=== PATIENT | female | born 2000 | race Two or more races ===

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

== ENCOUNTER 2021-11-14 21:23 | Emergency (ER) | payer MEDICAID ==
[~2021-11-14] VITALS: Ht 152.4 cm; Wt 48.5 kg
[2021-11-15] MEDS ORDERED: HYDROcodone-ACET 5/325MG TAB PO ONE (00:30)
[2021-11-15 03:20] VITALS: BP 116/73
== END 2021-11-15 03:21 | disposition home or self-care (01) ==
LOC: ER 21:28
DX: M79.10 Myalgia, unspecified site (principal); V43.62XA Car passenger injured in collision with other type car in traffic accident, initial encounter; Y93.89 Activity, other specified; Y92.410 Unspecified street and highway as the place of occurrence of the external cause; Y99.8 Other external cause status
CPT/HCPCS: 70450; 71046; 72125; 72131

== ENCOUNTER → 2023-05-31 | Outpatient (CLI) | payer MEDICAID ==
[2023-05-31 12:19] LABS: Basophils # (auto) 0 10 ^3/uL (0-0.2); Basophils % (auto) 0.3 % (0.0-2.0); Eosinophils # (auto) 0.2 10 ^3/uL (0-0.8); Eosinophils % (auto) 2.3 % (0.0-7.0); Hematocrit 35.7 % (36.0-46.0); Hemoglobin 12.2 g/dL (12.2-16.2); Lymphocytes # (auto) 1.8 10 ^3/uL (0.4-5.4); Lymphocytes % (auto) 24.3 % (10.0-50.0); Mean Corpuscular Hemoglobin 30.7 pg (28.0-32.0); Mean Corpuscular Volume 90.3 fL (80.0-100.0); Monocytes # (auto) 0.4 10 ^3/uL (0-1.3); Monocytes % (auto) 5.7 % (0.0-12.0); Neutrophils # (auto) 5.1 10 ^3/uL (1.6-8.6); Neutrophils % (auto) 67.4 % (37.0-80.0); Red Blood Cells 3.96 10^6/uL (4.0-5.20); Red Cell Distribution Width 13.2 % (11.8-14.3); White Blood Cell 7.6 10^3/uL (4.4-10.8)
[2023-05-31 12:41] LABS: Amphetamine Screen, Urine Neg (NEGATIVE); Barbiturate Scree,Urine Neg (NEGATIVE); Benzodiazephine Screen, Urine Neg (NEGATIVE); Cocaine Screen, Urine Neg (NEGATIVE)
[2023-05-31 12:42] LABS: Cannabinoid Screen, Urine Neg (NEGATIVE); Opiate Scree,Urine Neg (NEGATIVE); Phencyclidine Screen, Urine Neg (NEGATIVE)
[2023-06-01 06:06] LABS: Treponema Pallidum Ab LC Non Reactive (Non Reactive)
[2023-06-01 08:06] LABS: RPR Non Reactive (Non Reactive)
[2023-06-01 22:06] LABS: Chlamydia Trachomatis, NAA Negative (Negative); Neisseria gonorrhoeae, NAA Negative (Negative)
[2023-06-02 14:06] LABS: QuantiFERON-TB Gold Plus Negative (Negative)
[2023-06-02 19:06] LABS: Treponema pallidum Ab (FTA-Ab) Non Reactive (Non Reactive)
== END | disposition home or self-care (01) ==
LOC: LAB 11:40
PROVIDERS: ATTEND Obstetrics & Gynecology
DX: Z31.430 Encounter of female for testing for genetic disease carrier status for procreative management (principal); N39.0 Urinary tract infection, site not specified
CPT/HCPCS: 36415; 80307; 83036; 84112; 84144; 84702; 85025; 86592; 86703; 86762; 86850; 86900; 86901; 87086; 87088; 87186; 87340

== ENCOUNTER 2023-07-31 14:15 | Emergency (ER) | payer MEDICAID ==
[~2023-07-31] VITALS: Ht 152.4 cm; Wt 52.3 kg
[2023-07-31 16:36] VITALS: BP 119/68; PULSE 75; RESP 16; TEMP 98.4; O2SAT 98
[2023-07-31] MEDS: methylPREDNISolone SOD SUCC 125 MG/2 ML VL IM ONE (16:51)
[2023-07-31] MEDS ORDERED: CETI10CA PO (16:55)
== END 2023-07-31 17:04 | disposition home or self-care (01) ==
LOC: ER 14:15
DX: O26.892 Other specified pregnancy related conditions, second trimester (principal); T78.49XA Other allergy, initial encounter; Z3A.23 23 weeks gestation of pregnancy; Z79.899 Other long term (current) drug therapy; X58.XXXA Exposure to other specified factors, initial encounter
CPT/HCPCS: 96372; 99283; J2930

== ENCOUNTER → 2023-08-28 | Outpatient (CLI) | payer MEDICAID ==
[~2023-08-28] MED LIST: CETI10CA PO; PREN-96 PO
[2023-08-28 09:13] LABS: Basophils # (auto) 0 10 ^3/uL (0-0.2); Basophils % (auto) 0.3 % (0.0-2.0); Eosinophils # (auto) 0.1 10 ^3/uL (0-0.8); Eosinophils % (auto) 0.8 % (0.0-7.0); Hematocrit 35.2 % (36.0-46.0); Hemoglobin 11.9 g/dL (12.2-16.2); Lymphocytes # (auto) 1.3 10 ^3/uL (0.4-5.4); Lymphocytes % (auto) 12.3 % (10.0-50.0); Mean Corpuscular Hemoglobin 30.8 pg (28.0-32.0); Mean Corpuscular Hgb Conc. 33.9 g/dL (32.0-36.0); Mean Corpuscular Volume 90.8 fL (80.0-100.0); Monocytes # (auto) 1.1 10 ^3/uL (0-1.3); Monocytes % (auto) 10.4 % (0.0-12.0); Neutrophils # (auto) 8.2 10 ^3/uL (1.6-8.6); Neutrophils % (auto) 76.2 % (37.0-80.0); Nucleated Red Blood Cells % 0.1 %; Red Blood Cells 3.88 10^6/uL (4.0-5.20); Red Cell Distribution Width 12.9 % (11.8-14.3); White Blood Cell 10.8 10^3/uL (4.4-10.8)
[2023-08-29 11:07] LABS: RPR Non Reactive (Non Reactive)
[2023-08-29 23:07] LABS: Chlamydia Trachomatis, NAA Negative (Negative); Neisseria gonorrhoeae, NAA Negative (Negative)
== END | disposition home or self-care (01) ==
LOC: LAB 08:52
PROVIDERS: ATTEND Obstetrics & Gynecology
DX: Z34.00 Encounter for supervision of normal first pregnancy, unspecified trimester (principal); Z3A.00 Weeks of gestation of pregnancy not specified
CPT/HCPCS: 36415; 82951; 83036; 85025; 86592

== ENCOUNTER → 2023-10-25 | Outpatient (CLI) | payer MEDICAID ==
[2023-10-25 10:15] LABS: Basophils # (auto) 0 10 ^3/uL (0-0.2); Basophils % (auto) 0.4 % (0.0-2.0); Eosinophils # (auto) 0.2 10 ^3/uL (0-0.8); Eosinophils % (auto) 1.9 % (0.0-7.0); Hematocrit 34.7 % (36.0-46.0); Hemoglobin 11.3 g/dL (12.2-16.2); Lymphocytes # (auto) 1.9 10 ^3/uL (0.4-5.4); Lymphocytes % (auto) 21.8 % (10.0-50.0); Mean Corpuscular Hemoglobin 28.9 pg (28.0-32.0); Mean Corpuscular Hgb Conc. 32.6 g/dL (32.0-36.0); Mean Corpuscular Volume 88.6 fL (80.0-100.0); Monocytes # (auto) 0.6 10 ^3/uL (0-1.3); Monocytes % (auto) 6.5 % (0.0-12.0); Neutrophils # (auto) 6.2 10 ^3/uL (1.6-8.6); Neutrophils % (auto) 69.4 % (37.0-80.0); Nucleated Red Blood Cells % 0.1 %; Red Blood Cells 3.92 10^6/uL (4.0-5.20); Red Cell Distribution Width 13.5 % (11.8-14.3); White Blood Cell 8.9 10^3/uL (4.4-10.8)
[2023-10-27 00:06] LABS: Chlamydia Trachomatis, NAA Negative (Negative); Neisseria gonorrhoeae, NAA Negative (Negative)
[2023-10-28 07:06] LABS: RPR Non Reactive (Non Reactive)
== END | disposition home or self-care (01) ==
LOC: LAB 09:42
PROVIDERS: ATTEND Obstetrics & Gynecology
DX: Z34.00 Encounter for supervision of normal first pregnancy, unspecified trimester (principal); Z3A.00 Weeks of gestation of pregnancy not specified
CPT/HCPCS: 36415; 85025; 86592

== ENCOUNTER 2023-11-17 18:32 | Inpatient (IN) | payer MEDICAID ==
[~2023-11-17] VITALS: Ht 152.4 cm; Wt 55.8 kg
[2023-11-17] MEDS ORDERED: PENICILLIN G POT 5MIL/D5 50ML 50 ML IV ONE (21:30)
[2023-11-17] MEDS ORDERED: BUTORPHANOL TARTRATE 2 MG/1 ML VIAL IV PRN ×2 (21:30)
[2023-11-17] MEDS ORDERED: LIDOCAINE 2%HCL (LOCAL ANESTH.) INJ 20ML MDV IJ PRN (21:30)
[2023-11-17] MEDS: LACTATED RINGER'S 1,000 ML IV SCH (21:45)
[2023-11-17] MEDS ORDERED: TERBUTALINE SULFATE 1 MG/ML 1ML VIAL SC PRN (22:15)
[2023-11-17 22:39] LABS: Basophils # (auto) 0 10 ^3/uL (0-0.2); Basophils % (auto) 0.5 % (0.0-2.0); Eosinophils # (auto) 0.1 10 ^3/uL (0-0.8); Eosinophils % (auto) 1.1 % (0.0-7.0); Hemoglobin 10.3 g/dL (12.2-16.2); Lymphocytes # (auto) 2.5 10 ^3/uL (0.4-5.4); Lymphocytes % (auto) 31.8 % (10.0-50.0); Mean Corpuscular Hemoglobin 28.8 pg (28.0-32.0); Mean Corpuscular Hgb Conc. 33.2 g/dL (32.0-36.0); Mean Corpuscular Volume 86.9 fL (80.0-100.0); Monocytes # (auto) 0.6 10 ^3/uL (0-1.3); Monocytes % (auto) 8.3 % (0.0-12.0); Neutrophils # (auto) 4.6 10 ^3/uL (1.6-8.6); Neutrophils % (auto) 58.3 % (37.0-80.0); Red Blood Cells 3.57 10^6/uL (4.0-5.20); White Blood Cell 7.9 10^3/uL (4.4-10.8)
[2023-11-17] MEDS: DERMOPLAST 60ML BOTTLE TOP PRN (22:47)
[2023-11-17] MEDS: PHISODERM TOP SOLN 240ML BTL TOP PRN (22:47)
[2023-11-17] MEDS: WITCH HAZEL-GLYCERIN PAD TOP PRN (22:47)
[2023-11-17] MEDS: LACT. RINGERS/OXYTOCIN 20UNITS 1,000 ML IV SCH (22:48)
[2023-11-17 23:05] LABS: Albumin 3.5 g/dL (3.2-4.8); Alkaline Phosphatase 157 U/L (46-116); Anion Gap 6 (5-15); Aspartate Aminotransferase 12 U/L (13-40); BUN/Creatinine Ratio 14.6 (10.0-20.0); Bilirubin, Total 0.4 mg/dL (0.2-1.0); Blood Urea Nitrogen 7 mg/dL (9-23); Calcium 9.1 mg/dL (8.5-10.1); Carbon Dioxide 23 mmol/L (20-30); Chloride 109 mmol/L (98-107); Glucose 80 mg/dL (74-106); Potassium 3.7 mmol/L (3.5-5.1); Sodium 138 mmol/L (136-145); Total Protein 6.2 g/dL (5.7-8.2)
[2023-11-17 23:09] LABS: Alanine Aminotransferase < 9 U/L (7-40)
[2023-11-17 23:31] LABS: INR 0.95 (0.9-1.15); Partial Thromboplastin Time 25.8 SEC (24.5-34.5); Prothrombin Time 10.1 sec (9.3-11.8)
[2023-11-18] MEDS ORDERED: PENICILLIN G POTASSIUM 2,500,000 UNITS in D5W 5% 50 ML IV SCH (01:30)
[2023-11-18 04:15] LABS: Amphetamine Screen, Urine Neg (NEGATIVE); Barbiturate Scree,Urine Neg (NEGATIVE); Benzodiazephine Screen, Urine Neg (NEGATIVE); Cannabinoid Screen, Urine Neg (NEGATIVE); Cocaine Screen, Urine Neg (NEGATIVE); Opiate Scree,Urine Neg (NEGATIVE); Phencyclidine Screen, Urine Neg (NEGATIVE)
[2023-11-18 05:18] LABS: Urine Bacteria FEW /hpf (None Seen); Urine Blood 2+ /uL (Negative); Urine Clarity Clear (Clear); Urine Color Light-Yellow (Yellow); Urine Hyaline Cast FEW /lpf (0 - 2); Urine Protein, UAD Negative (Negative); Urine Specific Gravity 1.015 (1.001-1.035); Urine Urobilinogen Normal (Negative); Urine WBC 1 /hpf (0 - 5); Urine pH 6.5 (5.0-9.0)
[2023-11-18] MEDS: LACT. RINGERS/OXYTOCIN 20UNITS 500 ML IV ONE ×2 (07:00→07:30)
[2023-11-18] MEDS ORDERED: miSOPROStol 100 mcg TAB PR PRN (07:00)
[2023-11-18] MEDS: METHYLERGONOVINE MALEATE 0.2 MG/ML AMP IM ONE (07:00)
[2023-11-18] MEDS ORDERED: miSOPROStol 100 mcg TAB SL PRN (07:00)
[2023-11-18] MEDS: CARBOPROST TROMETHAMINE 250 MCG/1ML VIAL IM ONE (07:00)
[2023-11-18] MEDS ORDERED: DIPHENOXYLATE W/ATROPINE 2.5 MG TAB PO PRN (07:00)
[2023-11-18] MEDS: DINOPROSTONE 10MG VAG SUPP PV ONE (15:41)
[2023-11-19] VITALS (9 sets, daily range): BP systolic 103–139; BP diastolic 58–82; PULSE 64–72; RESP 16–18; TEMP 97.8–98.4; O2SAT 95–99
[2023-11-19] MEDS ORDERED: BUTORPHANOL TARTRATE 2 MG/1 ML VIAL IV PRN ×2 (08:00)
[2023-11-19] MEDS: NALOXONE HCL 0.4 MG/ML VIAL IV ONE (10:45)
[2023-11-19] MEDS: LACTATED RINGER'S 1,000 ML IV ONE (11:33)
[2023-11-19] MEDS: ROPIVACAINE HCL 200 ML ONE (11:58)
[2023-11-19] MEDS: ePHEDrine SULFATE 50 MG/ML AMP IV ONE (12:04)
[2023-11-19] MEDS: fentaNYL CITRATE 100 MCG/2 ML VL IV ONE (12:07)
[2023-11-19] MEDS: ceFAZolin 1GM/50ML 50 ML IV ONE (14:26)
[2023-11-19] MEDS ORDERED: MORPHINE SULF PF 5 MG/10 ML VIAL ONE (15:08)
[2023-11-19] MEDS ORDERED: ePHEDrine SULFATE 50 MG/ML AMP IV PRN (15:15)
[2023-11-19] MEDS ORDERED: MORPHINE SULFATE 4 MG/ML SYR/VIAL IV PRN (15:15)
[2023-11-19] MEDS: LACT. RINGERS/OXYTOCIN 20UNITS 1,000 ML IV ONE (15:15)
[2023-11-19] MEDS ORDERED: ONDANSETRON HCL 4 MG/2 ML VIAL IV PRN ×2 (15:15→16:45)
[2023-11-19] MEDS ORDERED: ceFAZolin 1GM/50ML 50 ML IV SCH (15:15)
[2023-11-19] MEDS: BUPIVACAINE 0.5% P/F INJ 10 ML VIAL ONE ×2 (15:16)
[2023-11-19] MEDS: SODIUM CITR/CITRIC ACID ORAL SOLN 30 ML PO SCH (15:33)
[2023-11-19] MEDS: SODIUM CITR/CITRIC ACID ORAL SOLN 30 ML ONE (15:33)
[2023-11-19] MEDS ORDERED: fentaNYL CITRATE 100 MCG/2 ML VL ONE (15:43)
[2023-11-19] MEDS ORDERED: MIDAZOLAM HCL 2MG/2ML 2ml VIAL (1mg/ml) ONE (15:43)
[2023-11-19] MEDS ORDERED: oxyTOCIN 10 UNIT/ML 10ML VIAL ONE (16:20)
[2023-11-19] MEDS ORDERED: ONDANSETRON HCL 4 MG/2 ML VIAL ONE (16:20)
[2023-11-19] MEDS: BUPIVACAINE HCL 50 ML ONE (16:40)
[2023-11-19] MEDS ORDERED: DexAMETHasone SOD PHOS 10MG/1ML VIAL INJ IV PRN (16:45)
[2023-11-19] MEDS ORDERED: NALOXONE HCL 0.4 MG/ML VIAL IV PRN (16:45)
[2023-11-19] MEDS: NALBUPHINE HCL 10 MG/1ml INJECTION SUBCUT ONE (16:45)
[2023-11-19] MEDS ORDERED: HYDROmorphone HCL 2 MG/ML VL/or syr IV PRN (16:45)
[2023-11-19] MEDS ORDERED: diphenhdrAMINE HCL 50 MG/1 ML VL IV PRN (16:45)
[2023-11-19] MEDS: ACETAMINOPHEN IV 1000 MG/100ML (10MG/ML) IV PRN (18:59)
[2023-11-19] MEDS: ceFAZolin 1GM/50ML 50 ML IV SCH (22:25)
[2023-11-20] VITALS (18 sets, daily range): BP systolic 106–123; BP diastolic 64–76; PULSE 66–92; RESP 16–18; TEMP 97.6–98.4; O2SAT 95–97
[2023-11-20 06:22] LABS: Basophils # (auto) 0 10 ^3/uL (0-0.2); Basophils % (auto) 0.4 % (0.0-2.0); Eosinophils # (auto) 0 10 ^3/uL (0-0.8); Eosinophils % (auto) 0.2 % (0.0-7.0); Hematocrit 29.1 % (36.0-46.0); Hemoglobin 9.6 g/dL (12.2-16.2); Lymphocytes # (auto) 1.3 10 ^3/uL (0.4-5.4); Lymphocytes % (auto) 11.2 % (10.0-50.0); Mean Corpuscular Hemoglobin 28.7 pg (28.0-32.0); Mean Corpuscular Hgb Conc. 32.9 g/dL (32.0-36.0); Mean Corpuscular Volume 87.2 fL (80.0-100.0); Monocytes # (auto) 0.5 10 ^3/uL (0-1.3); Monocytes % (auto) 4.6 % (0.0-12.0); Neutrophils # (auto) 9.6 10 ^3/uL (1.6-8.6); Neutrophils % (auto) 83.6 % (37.0-80.0); Red Blood Cells 3.34 10^6/uL (4.0-5.20); Red Cell Distribution Width 14.5 % (11.8-14.3); White Blood Cell 11.5 10^3/uL (4.4-10.8)
[2023-11-20] MEDS ORDERED: HYDROcodone-ACET 5/325MG TAB PO PRN (06:45)
[2023-11-20] MEDS: HYDROcodone-ACET 5/325MG TAB PO PRN (08:19)
[2023-11-20] MEDS: DOCUSATE CALCIUM 240 MG CAP PO SCH (08:19)
[2023-11-20] MEDS: DOCUSATE SOD 100 MG CAP PO SCH (11:05)
[2023-11-20] MEDS: KETOROLAC TROMETH 30 MG/ML 1ML VIAL IV PRN (11:07)
[2023-11-21 03:00] VITALS: BP 124/76; PULSE 97; RESP 16; TEMP 98.4; O2SAT 97
[2023-11-21] MEDS ORDERED: CEPH250C PO (06:32)
[2023-11-21] MEDS ORDERED: SENN1TAB49 PO (06:32)
[2023-11-21] MEDS ORDERED: HYDR-4902 PO ×2 (06:32→07:23)
[2023-11-21 07:07] LABS: RPR Non Reactive (Non Reactive)
[2023-11-21 07:09] VITALS: BP 108/73; PULSE 79; RESP 18; TEMP 98.6; O2SAT 96
[2023-11-21] MEDS ORDERED: IBUP-1455 PO (07:23)
[2023-11-21] MEDS ORDERED: ASCO500T11 PO (07:26)
[2023-11-21] MEDS ORDERED: FER325T PO (07:26)
[2023-11-21 11:00] VITALS: BP 119/72; PULSE 83; RESP 16; TEMP 98.7; O2SAT 96
[2023-11-21] MEDS: IBUPROFEN 800 MG TAB PO PRN (12:30)
[2023-11-21 15:00] VITALS: BP 112/68; PULSE 80; RESP 16; TEMP 98.5; O2SAT 96
[2023-11-21 19:06] LABS: Treponema pallidum Ab (FTA-Ab) Non Reactive (Non Reactive)
== END 2023-11-21 16:30 | disposition home or self-care (01) | DRG 540 ==
LOC: LDRP 18:32 → OBSVTOIN 21:34 → LDRP 22:32
PROVIDERS: ADMIT Obstetrics & Gynecology; ATTEND Obstetrics & Gynecology
PROC: 10D00Z1 Extraction of Products of Conception, Low, Open Approach (ICD-10-PCS; principal; 2023-11-19 15:18)
DX: O76 Abnormality in fetal heart rate and rhythm complicating labor and delivery (principal); Z37.0 Single live birth; Z88.8 Allergy status to other drugs, medicaments and biological substances; Z91.040 Latex allergy status; Z3A.38 38 weeks gestation of pregnancy
CPT/HCPCS: 36415; 59020; 59025; 62282; 76818; 80053; 80307; 81001; 81002; 85025; 85610; 85730; 86592; 86703; 86803; 86850; 86900; 86901; 94760; 94762; 96360; 96361; 96365; 96366; 96374; G0378; J0131; J1885; J2250; J2405; J2590; J3490; J7060

== ENCOUNTER 2023-12-15 14:55 | Emergency (ER) | payer MEDICAID ==
[~2023-12-15] VITALS: Ht 152.4 cm; Wt 49.4 kg
[~2023-12-15 14:55] MED LIST changes: +ASCO500T11 PO; +FER325T PO; +HYDR-4902 PO; +IBUP-1455 PO; +SENN1TAB49 PO
[2023-12-15] MEDS: MECLIZINE HCL 25 MG TAB PO ONE (15:38)
[2023-12-15 15:42] VITALS: PULSE 85; RESP 16; O2SAT 96
[2023-12-15 16:26] LABS: Chloride 106 mmol/L (98-107); Potassium 3.9 mmol/L (3.5-5.1); Sodium 141 mmol/L (136-145)
[2023-12-15 16:27] LABS: Anion Gap 6 (5-15); Carbon Dioxide 29 mmol/L (20-30)
[2023-12-15 16:28] LABS: Calcium 10.4 mg/dL (8.7-10.4)
[2023-12-15 16:32] LABS: Glucose 79 mg/dL (74-106)
[2023-12-15 16:33] LABS: BUN/Creatinine Ratio 15.9 (10.0-20.0); Blood Urea Nitrogen 11 mg/dL (9-23); Lipase 30 U/L (12-53)
[2023-12-15 16:44] LABS: Basophils # (auto) 0 10 ^3/uL (0-0.2); Basophils % (auto) 0.6 % (0.0-2.0); Eosinophils # (auto) 0.4 10 ^3/uL (0-0.8); Eosinophils % (auto) 5.8 % (0.0-7.0); Hematocrit 35.8 % (36.0-46.0); Hemoglobin 11.9 g/dL (12.2-16.2); Lymphocytes # (auto) 2.7 10 ^3/uL (0.4-5.4); Lymphocytes % (auto) 35.8 % (10.0-50.0); Mean Corpuscular Hgb Conc. 33.3 g/dL (32.0-36.0); Mean Corpuscular Volume 86.9 fL (80.0-100.0); Monocytes # (auto) 0.5 10 ^3/uL (0-1.3); Monocytes % (auto) 6.1 % (0.0-12.0); Neutrophils # (auto) 3.8 10 ^3/uL (1.6-8.6); Neutrophils % (auto) 51.7 % (37.0-80.0); Red Blood Cells 4.12 10^6/uL (4.0-5.20); White Blood Cell 7.4 10^3/uL (4.4-10.8)
[2023-12-15 17:00] LABS: Urine Bacteria None Seen /hpf (None Seen)
[2023-12-15] MEDS: ACETAMINOPHEN 500 MG TAB PO ONE (17:22)
[2023-12-15 17:44] LABS: Urine Blood Negative /uL (Negative); Urine Clarity Clear (Clear); Urine Color Light-Yellow (Yellow); Urine Protein, UAD Negative (Negative); Urine Urobilinogen Normal (Negative); Urine WBC 6 /hpf (0 - 5); Urine pH 6.5 (5.0-9.0)
[2023-12-15] MEDS: CEPHALEXIN 250 MG CAP PO ONE (18:49)
[2023-12-15] MEDS ORDERED: ACET500T58 PO (18:51)
[2023-12-15] MEDS ORDERED: CEPH250C PO (18:51)
[2023-12-15] MEDS ORDERED: MECL1TAB42 PO (18:51)
[2023-12-15 19:20] VITALS: BP 127/83; PULSE 68; RESP 19; TEMP 98.2; O2SAT 98
== END 2023-12-15 19:22 | disposition home or self-care (01) ==
LOC: ER 14:55
DX: N39.0 Urinary tract infection, site not specified (principal); R42 Dizziness and giddiness; R55 Syncope and collapse; Z91.040 Latex allergy status; Z32.02 Encounter for pregnancy test, result negative
CPT/HCPCS: 36415; 70450; 80048; 81001; 81025; 83690; 84484; 85025; 93005; 99284; J8597

== ENCOUNTER 2024-01-15 12:07 | Emergency (ER) | payer MEDICAID ==
[~2024-01-15] VITALS: Ht 152.4 cm; Wt 55.0 kg
[~2024-01-15 12:07] MED LIST changes: +ACET500T58 PO; +CEPH250C PO; +MECL1TAB42 PO
[2024-01-15 13:18] VITALS: BP 124/50; PULSE 78; RESP 16; O2SAT 96
[2024-01-15] MEDS: IBUPROFEN 800 MG TAB PO ONE (14:05)
[2024-01-15] MEDS: ACETAMINOPHEN 500 MG TAB PO ONE (14:05)
[2024-01-15] MEDS: SODIUM CHLORIDE 0.9% 500 ML IV ONE (14:27)
[2024-01-15 14:55] LABS: COVID19 ANTIGEN SOFIA FIA NEGATIVE (NEGATIVE)
[2024-01-15 14:56] LABS: Rapid Influenza A Negative (Negative); Rapid Influenza B Negative (Negative)
[2024-01-15] MEDS ORDERED: IBUP-1454 PO (15:01)
[2024-01-15 15:04] VITALS: TEMP 98.4
== END 2024-01-15 15:02 | disposition home or self-care (01) ==
LOC: ER 12:09
DX: B34.9 Viral infection, unspecified (principal); Z20.822 Contact with and (suspected) exposure to COVID-19
CPT/HCPCS: 36415; 87426; 87804; 96360; 99283; J7040